=== PATIENT | male | born 1945 ===

== ENCOUNTER 2023-02-24 11:00 | Day surgery (SDC) | payer MEDICARE, OTHER ==
[2023-02-24] MEDS: Polymyxin B/Trimethoprim 10 ML Bottle EYELF SCH ×3 (10:56→12:54)
[~2023-02-24 11:00] MED LIST: Cefuroxime 10 MG/ML SYRINGE EYELF SCH; Lidocaine 1% PF 2 ML SDV INJECT SCH; Pilocarpine 4% Ophth Soln 15 ML Bot EYELF SCH; Tetracaine HCl/PF 0.5% 4 ML Bottle EYEBOTH SCH
[2023-02-24] MEDS: Brimonidine 0.2% Ophth Soln 5 ML Bottle EYELF SCH ×3 (11:00→12:54)
[2023-02-24] MEDS: Phenylephrine 2.5% Ophth Soln 2 ML Bot EYELF SCH ×5 (11:05→12:32)
[2023-02-24] MEDS: Tropicamide 1% Ophth Soln 3 ML Bottle EYELF SCH ×4 (11:08→11:36)
[2023-02-24] MEDS: Proparacaine 0.5% Ophth Soln 15 ML Bottle EYEBOTH SCH ×4 (12:05→12:41)
== END 2023-02-24 13:04 | disposition home or self-care (01) ==
LOC: JD.SDS 11:00
PROVIDERS: ATTEND Ophthalmology
DX: H25.812 Combined forms of age-related cataract, left eye (principal); H35.373 Puckering of macula, bilateral; H16.103 Unspecified superficial keratitis, bilateral; H16.223 Keratoconjunctivitis sicca, not specified as Sjogren's, bilateral; H02.831 Dermatochalasis of right upper eyelid; H02.834 Dermatochalasis of left upper eyelid; Z87.891 Personal history of nicotine dependence
CPT/HCPCS: A9270-GY; J0697; J3490; V2632